=== PATIENT | female | born 1990 ===

== ENCOUNTER 2017-01-12 13:55 | Emergency (ER) | payer OTHER ==
[2017-01-12 14:28] VITALS: RESP 18; TEMP 98.6; O2SAT 100
[2017-01-12] MEDS ORDERED: ONDANSETRON HCL 4 MG/2 ML SOL IV ONE (14:28)
[2017-01-12] MEDS ORDERED: SODIUM CHLORIDE 0.9% 1000 ML SOL IV ONE (14:30)
[2017-01-12] MEDS ORDERED: ONDANSETRON HCL 4 MG/2 ML SOL ONE (14:31)
[2017-01-12 14:45] LABS: HEMATOCRIT 46 % (35-47); MEAN CORPUSCULAR VOLUME 88 fL (81-99)
[2017-01-12 15:02] LABS: APPEARANCE,URINE Clear; BILIRUBIN,URINE NEGATIVE (NEGATIVE); COLOR,URINE Yellow; GLUCOSE, URINE (UA) NEGATIVE (NEGATIVE); KETONES,URINE NEGATIVE (NEGATIVE); LEUKOCYTE ESTERASE ,URINE TRACE (NEGATIVE); NITRATE,URINE NEGATIVE (NEGATIVE); OCCULT BLOOD,URINE NEGATIVE (NEG-TRACE); UROBILINOGEN,URINE 0.2 (0.2-1.0 EU)
[2017-01-12 15:07] LABS: ALBUMIN 4.4 gm/dl (3.4-5.0); CALCIUM 8.8 mg/dl (8.5-10.1)
[2017-01-12 15:16] LABS: RBC,URINE 0-2 (0-3AV/HPF)
[2017-01-12 15:30] LABS: BASOPHILS % (MANUAL) 1 % (0-3); EOSINOPHILS % (MANUAL) 1 % (0-9); LYMPHOCYTES % (MANUAL) 20 % (10-50); NORMAL RBCS PRESENT
[2017-01-12] MEDS ORDERED: KETOROLAC TROMETHAMINE 30 MG/ML SOL IV ONE (16:03)
[2017-01-12] MEDS ORDERED: KETOROLAC TROMETHAMINE 30 MG/ML SOL ONE (16:14)
[2017-01-12] MEDS ORDERED: SODIUM CHLORIDE 0.9% FLUSH 10 ML SOL IV PRN (16:17)
[2017-01-12 16:32] VITALS: BP 99/62; PULSE 69
== END 2017-01-12 16:28 | disposition home or self-care (01) | DRG 761 ==
LOC: ED 13:55
DX: N83.201 Unspecified ovarian cyst, right side (principal)
CPT/HCPCS: 36415; 74177; 80053; 81001; 82150; 84703; 85007; 85027; 99285; J1885; J2405; Q9967

== ENCOUNTER 2017-01-24 23:50 | Emergency (ER) | payer SELFPAY ==
[2017-01-25] MEDS ORDERED: IBUPROFEN 400 MG TAB PO ONE
[2017-01-25 00:01] VITALS: RESP 18; TEMP 97.6
[2017-01-25] MEDS ORDERED: IBUPROFEN 400 MG TAB ONE (00:01)
[2017-01-25 00:35] LABS: BASOPHILS % (AUTO) 1 % (0-3); EOSINOPHILS % (AUTO) 4 % (0-9); HEMATOCRIT 42 % (35-47); MEAN CORPUSCULAR VOLUME 88 fL (81-99); MONOCYTES % (AUTO) 3.1 % (0-12); NEUTROPHILS % (AUTO) 67.7 % (37-80)
[2017-01-25 00:45] LABS: AMPHETAMINES NEGATIVE (NEGATIVE); METHADONE NEGATIVE (NEGATIVE); OPIATES(OP13) NEGATIVE (NEGATIVE); OXYCODONE(OXY) NEGATIVE (NEGATIVE); PROPOXYPHENE(PPX) NEGATIVE (NEGATIVE); TRICYCLIC ANTIDEPRESSANTS NEGATIVE (NEGATIVE)
[2017-01-25 00:48] LABS: ALBUMIN 4.3 gm/dl (3.4-5.0); POTASSIUM 3.8 mMol/L (3.5-5.1)
[2017-01-25 01:18] VITALS: BP 132/76; PULSE 102; O2SAT 98
== END 2017-01-25 01:13 | DRG 605 ==
LOC: ED 23:50
DX: S00.83XA Contusion of other part of head, initial encounter (principal); Y09 Assault by unspecified means
CPT/HCPCS: 36415; 80053; 80305; 84703; 85025; 99282; 99283

== ENCOUNTER 2017-03-23 20:55 | Emergency (ER) | payer SELFPAY ==
[2017-03-23 21:14] VITALS: RESP 18; TEMP 96.8
[2017-03-23 21:37] LABS: MEAN CORPUSCULAR HGB CONC 35.8 gm/dl (32.0-36.0)
[2017-03-23 21:48] LABS: APPEARANCE,URINE Clear; BILIRUBIN,URINE NEGATIVE (NEGATIVE); COLOR,URINE Light yellow; GLUCOSE, URINE (UA) NEGATIVE (NEGATIVE); KETONES,URINE NEGATIVE (NEGATIVE); LEUKOCYTE ESTERASE ,URINE NEGATIVE (NEGATIVE); NITRATE,URINE NEGATIVE (NEGATIVE); OCCULT BLOOD,URINE NEGATIVE (NEG-TRACE); PH,URINE 5.5; UROBILINOGEN,URINE 0.2 (0.2-1.0 EU)
[2017-03-23 21:59] LABS: SALICYLATE < 2.8 mg/dl (2.8-30.0); THYROID STIMULATING HORMONE 0.425 uIU/ml (0.358-3.740)
[2017-03-23 22:06] LABS: AMPHETAMINES NEGATIVE (NEGATIVE); METHADONE NEGATIVE (NEGATIVE); OPIATES(OP13) NEGATIVE (NEGATIVE); OXYCODONE(OXY) NEGATIVE (NEGATIVE); PROPOXYPHENE(PPX) NEGATIVE (NEGATIVE); RBC,URINE NEG (0-3AV/HPF); TRICYCLIC ANTIDEPRESSANTS NEGATIVE (NEGATIVE); WBC,URINE 0-1 (0-5AV/HPF)
[2017-03-23] MEDS ORDERED: IBUPROFEN 400 MG TAB PO ONE (22:35)
[2017-03-23] MEDS ORDERED: IBUPROFEN 400 MG TAB ONE (22:36)
[2017-03-23 23:38] VITALS: BP 133/87; PULSE 64; O2SAT 100
== END 2017-03-24 00:24 | disposition home or self-care (01) | DRG 880 ==
LOC: ED 20:55
DX: R45.851 Suicidal ideations (principal)
CPT/HCPCS: 36415; 80305; 80307; 81001; 84443; 84703; 85027; 99284

== ENCOUNTER 2017-05-21 19:13 | Emergency (ER) | payer OTHER ==
[2017-05-21] MEDS ORDERED: DIPHENHYDRAMINE 50 MG/ML SOL IV ONE (19:16)
[2017-05-21] MEDS ORDERED: ONDANSETRON HCL 4 MG/2 ML SOL IV ONE (19:18)
[2017-05-21] MEDS ORDERED: SOLUMEDROL 125 MG/2 ML 125 MG/2 ML PDS IV ONE (19:18)
[2017-05-21] MEDS: SODIUM CHLORIDE 0.9% FLUSH 10 ML SOL IV PRN ×2 (19:20→19:28)
[2017-05-21] MEDS ORDERED: DIPHENHYDRAMINE 50 MG/ML SOL ONE (19:26)
[2017-05-21] MEDS ORDERED: ONDANSETRON HCL 4 MG/2 ML SOL ONE (19:26)
[2017-05-21 19:54] VITALS: BP 115/80; TEMP 98
[2017-05-21] MEDS ORDERED: SOLUMEDROL 125 MG/2 ML 125 MG/2 ML PDS ONE (20:10)
[2017-05-21 20:43] VITALS: PULSE 78; RESP 18; O2SAT 98
== END 2017-05-21 20:39 | disposition home or self-care (01) ==
LOC: ED 19:13
DX: T78.1XXA Other adverse food reactions, not elsewhere classified, initial encounter (principal); R11.0 Nausea
CPT/HCPCS: 96374; 96375; 99283; 99284; J1200; J2405; J2930